=== PATIENT | male | born 1965 | race Caucasian/White ===

== ENCOUNTER 2023-10-23 07:48 | Outpatient (CLI) | payer OTHER, SELFPAY ==
--- NOTE | ~2023-10-23 | US_ITS ---
US right upper quadrant INDICATION: Elevated liver enzymes PROCEDURE: Realtime right upper abdominal ultrasound. COMPARISON: No prior studies for comparison. FINDINGS: Pancreas is suboptimally visualized due to bowel gas. Liver echotexture is increased, cons istent with fatty infiltration. There is normal directional flow in the portal vein. The gallbladder is normal without stones, gallbladder wall thickening or pericholecystic fluid. Comm on bile duct measures 5 mm. No sonographic George's sign. IMPRESSION: 1: Fatty infiltration of the liver. Reviewed, dictated and finalized at location [facility].
== END 2023-10-23 07:49 ==
DX: R74.01 Elevation of levels of liver transaminase levels (principal); K76.0 Fatty (change of) liver, not elsewhere classified
CPT/HCPCS: 76705

== ENCOUNTER 2024-10-04 15:48 | Outpatient (CLI) | payer OTHER, SELFPAY ==
--- NOTE | ~2024-10-04 | CT_ITS ---
Non-contrast CT scan of the Abdomen and Pelvis Clinical indication: Right flank pain Technique: 2.5 mm axial scans were obtained through the abdomen and pelvis without intravenous or or al contrast. Dose reduction technique was used on this scan by utilizing automated exposure control a nd iterative reconstruction technique. The dose-length product (DLP) was 1124.77 mGy-cm. Findings: Images through the lung bases reveal no abnormalities. There is no evidence of renal or ureteral calculi. The kidneys and the ureters are nondilated. Subcen timeter right renal angiomyolipoma noted. There is diffuse hepatic steatosis. The spleen, pancreas, gallbladder, and adrenals appear normal. T here is no aortic aneurysm. There is no evidence of bowel obstruction. Images through the pelvis were performed. There is no evidence of ascites or lymphadenopathy. Urinary bladder unremarkable. No pelvic mass seen. No ascites. Impression: No acute abnormality. Diffuse hepatic steatosis. Reviewed, dictated and finalized at [facility]. Impression: No acute abnormality. Diffuse hepatic steatosis.
== END 2024-10-04 15:49 | disposition home or self-care (01) ==
LOC: MICIMG 15:49
DX: R10.9 Unspecified abdominal pain (principal); K76.0 Fatty (change of) liver, not elsewhere classified
CPT/HCPCS: 74176